=== PATIENT | female | born 2000 | race Caucasian/White ===

== ENCOUNTER 2022-01-01 09:20 | Emergency (ER) | payer MEDICAID, OTHER ==
[~2022-01-01] VITALS: Ht 157.5 cm; Wt 41.3 kg
[2022-01-01 09:35] VITALS: BP 118/76
[2022-01-01] MEDS ORDERED: predniSONE 20 MG TAB PO STA (09:41)
--- NOTE | 2022-01-01 09:48 | ED EENT ---
History of Present Illness General Chief Complaint: Oral/Throat Problems Stated Complaint: SORE THROAT Source: patient History of Present Illness Date Seen by Provider: January 01, 2022 Time Seen by Provider: 09:21 Initial Comments 21-year-old female presenting with complaints of cough and sore throat with congestion. She reports that she has with G1, P0 at approximately 4 months gestation. She is following with Dr. Espinoza in [place] for her . She last saw him around the of this month. She was seen on Sunday in clinic and they did a COVID swab and a rapid strep swab. These were both negative. She still has swollen tonsils and congestion with cough. Both her and her boyfriend are here in the emergency department today because of their symptoms. She states that she has been sick about 5 days and he has been sick about a week. Timing/Duration: gradual Severity: moderate Location: throat Prearrival Treatment: no prearrival treatment Modifying Factors: Worse With Other (Talking makes it worse) Associated Symptoms: No change in hearing; cough; No drooling, No ear drainage, No facial pain/swelling, No fever, No malaise; nasal congestion/drainage; No poor fluid intake, No poor solids intake, No sinus infection; sore throat; No tooth pain, No voice change Allergies and Home Medications Allergies Coded Allergies: No Known Drug Allergies (Unverified , 01/01/22) Patient Home Medication List Home Medication List Reviewed: Yes Guaifenesin (Mucinex) 1,200 Mg Tab.er.12h, 1,200 MG PO Q12H Prescribed by: LENA DONG on 01/01/22 0951 Prednisone (Prednisone) 20 Mg Tab, 40 MG PO DAILY Prescribed by: LENA DONG on 01/01/22 0951 Review of Systems Review of Systems Constitutional: No chills, No fever Eyes: No Symptoms Reported Ears: No Symptoms Reported Nose: see HPI, congestion; denies epistaxis, denies pain, denies bloody discharge; clear discharge; denies purulent discharge, denies serosanguinous discharge Mouth: no symptoms reported Throat: pain, swelling, painful swallowing Respiratory: cough Cardiovascular: no symptoms reported Gastrointestinal: no symptoms reported Musculoskeletal: other (General body aches) Skin: No rash Neurological: Headache Past Psjrffq-Klukex-Adxmwt Hx Patient Social History Tobacco Use?: No Use of E-Cig and/or Vaping dev: No Substance use?: No Alcohol Use?: No Past Medical History Surgery/Hospitalization HX: G1, P0 as of December 2021 Surgeries: No Physical Exam Vital Signs Vital Signs - First Documented 01/01/22 09:35 Temp 36.7 Pulse 92 Resp 18 B/P (MAP) 118/76 (90) Pulse Ox 100 O2 Delivery Room Air Height, Weight, BMI Height: '" Weight: lbs. oz. kg; BMI Method: General Appearance: WD/WN, no apparent distress Eyes: bilateral eye PERRL, bilateral eye EOMI Nose: other (Nasal congestion) Mouth/Throat: pharynx swelling; No tonsillar exudate; tonsillar swelling, other (Widespread dental decay with multiple missing teeth. Erythema and swelling to the posterior pharynx without exudate) Neck: non-tender, full range of motion, supple, normal inspection Cardiovascular: normal peripheral pulses, regular rate, rhythm Respiratory: chest non-tender, lungs clear, normal breath sounds, no respiratory distress, no accessory muscle use Gastrointestinal: normal bowel sounds, non tender, soft, no pulsatile mass Neurologic/Psychiatric: alert, oriented x 3 Skin: normal color, warm/dry Progress/Results/Core Measures Results/Orders My Orders Orders - LENA DONG MD Prednisone Tablet (Deltasone Tablet) (01/01/22 09:41) Vital Signs/I&O 01/01/22 09:35 Temp 36.7 Pulse 92 Resp 18 B/P (MAP) 118/76 (90) Pulse Ox 100 O2 Delivery Room Air Progress Progress Note : Progress Note Since she just had a strep and COVID test on Sunday will defer repeating these. Can try a steroid to help with pain and swelling in her throat. This should help dry up some of her congestion as well. She can also use Mucinex which would be safe during . Encouraged to check back through the clinic if she continued to have symptoms and was not improving. Departure Impression Primary Impression: Pharyngitis Qualified Codes: J02.9 - Acute pharyngitis, unspecified Additional Impressions: Upper respiratory infection with cough and congestion Incidental Disposition: 01 HOME, SELF-CARE Condition: Stable Departure-Patient Inst. Decision time for Depature: 09:59 Referrals: PATRICK DOMINGO MD NO,LOCAL PHYSICIAN (PCP) Primary Care Physician Patient Instructions: Sore Throat, Adult ED, Upper Respiratory Infection ED Add. Discharge Instructions: Stay well-hydrated and drink plenty of fluids. The steroid should help with swelling to throat and dry up some of the congestion. You would be safe to take plain Mucinex (guaifenesin) during . This will help loosen any congestion and drainage. If you are not improving this week you could check back with Dr. Espinoza or check in with a primary care clinic about continued symptoms All discharge instructions reviewed with patient and/or family. Voiced understanding. Scripts Guaifenesin (Mucinex) 1,200 Mg Tab.er.12h 1200 MG PO Q12H for Congestion/Cough for 7 Days, #14 TAB 0 Refills Prov: LENA DONG MD 01/01/22 Prednisone (Prednisone) 20 Mg Tab 40 MG PO DAILY for congestion/sore throat for 4 Days, #8 TAB 0 Refills Prov: LENA DONG MD 01/01/22 LENA DONG MD January 01, 2022 09:48
[2022-01-01] MEDS ORDERED: PRD20T PO (09:51)
[2022-01-01] MEDS ORDERED: GUAI120013 PO (09:51)
== END 2022-01-01 10:01 | disposition home or self-care (01) ==
LOC: ER FS 09:21
DX: J02.9 Acute pharyngitis, unspecified (principal); J06.9 Acute upper respiratory infection, unspecified; K02.9 Dental caries, unspecified; K08.109 Complete loss of teeth, unspecified cause, unspecified class; Z33.1 Pregnant state, incidental
CPT/HCPCS: 99283

== ENCOUNTER 2022-07-28 15:44 | Emergency (ER) | payer MEDICAID ==
[~2022-07-28 15:44] MED LIST: GUAI120013 PO; PRD20T PO
[2022-07-28 16:08] LABS: COLOR,URINE YELLOW; GLUCOSE, URINE (UA) TRACE (NEGATIVE); KETONES,URINE NEGATIVE (NEGATIVE); LEUKOCYTE ESTERASE ,URINE 2+ (NEGATIVE); NITRITE,URINE POSITIVE (NEGATIVE); PROTEIN,URINE 2+ (NEGATIVE)
[2022-07-28 16:11] LABS: BILIRUBIN,URINE 1+ (NEGATIVE); CLARITY,URINE TURBID; WBC,URINE TNTC /HPF
--- NOTE | 2022-07-28 16:28 | ED General ---
General Chief Complaint: General Problems/Pain Stated Complaint: WEAKNESS Nursing Triage Note: Patient presents to the ED with c/o lethargy, weakness, and decreased appetite. Reports she was recently told her iron levels are low. States, "I just haven't felt like eating for the past couple of days and all I want to do is sleep." History of Present Illness Date Seen by Provider: Jul 28, 2022 Time Seen by Provider: 16:21 Initial Comments 22-year-old female here complaining of not feeling well and not been able to keep anything down other than Sprite over the past 2 days. Patient states she feels like she is out because she is anemic. Patient states she was tested at her [facility] appointment with her kit and found to be anemic. Patient is taking [id number] iron supplementation but has not followed up with Dr. Marina who is her primary care. Patient she states that she has not tried any Zofran but does have some from her that was recent. Not having any bleeding. No pain with urination. We did get a urine and it shows positive you TI. Allergies and Home Medications Allergies Coded Allergies: No Known Drug Allergies (Unverified , 01/01/22) Patient Home Medication List Home Medication List Reviewed: Yes Guaifenesin (Mucinex) 1,200 Mg Tab.er.12h, 1,200 MG PO Q12H Prescribed by: LENA DONG on 01/01/22 0951 Prednisone (Prednisone) 20 Mg Tab, 40 MG PO DAILY Prescribed by: LENA DONG on 01/01/22 0951 Review of Systems Review of Systems Constitutional: see HPI Past Sablydz-Qzowyo-Nfdnph Hx Patient Social History Tobacco Use?: No Use of E-Cig and/or Vaping dev: Yes E-Cig or Vaping type used: Nicotine Use of E-Cig and/or Vaping [place]: Current Everyday User Substance use?: No Alcohol Use?: No Pt feels they are or have been: No Immunizations Up To Date First/Initial COVID19 Vaccinat: Denies Past Medical History Surgery/Hospitalization HX: Denies Surgeries: No Physical Exam Vital Signs Vital Signs - First Documented 07/28/22 15:45 Temp 36.4 Pulse 102 Resp 16 B/P (MAP) 134/88 (103) Pulse Ox 99 O2 Delivery Room Air Capillary Refill : Less Than 3 Seconds Height, Weight, BMI Height: '" Weight: lbs. oz. kg; 16.00 BMI Method: General Appearance: No Apparent Distress, WD/WN HEENT: PERRL/EOMI, Pharynx Normal Neck: Full Range of Motion, Non Tender, Supple Respiratory: Lungs Clear, Normal Breath Sounds Cardiovascular: Regular Rate, Rhythm Gastrointestinal: Normal Bowel Sounds, Non Tender, Soft Skin: Normal Color, Warm/Dry Progress/Results/Core Measures Suspected Sepsis SIRS Temperature: Pulse: 102 Respiratory Rate: 16 Blood Pressure 134 /88 Mean: 103 Results/Orders Lab Results Laboratory Tests Test 07/28/22 16:00 Range/Units Urine Color YELLOW Urine Clarity TURBID Urine pH 6.0 5-9 Urine Specific [place] 1.025 H 1.016-1.022 Urine Protein 2+ H NEGATIVE Urine Glucose (UA) TRACE H NEGATIVE Urine Ketones NEGATIVE NEGATIVE Urine Nitrite POSITIVE H NEGATIVE Urine Bilirubin 1+ H NEGATIVE Urine Urobilinogen 0.2 < = 1.0 MG/DL Urine Leukocyte Esterase 2+ H NEGATIVE Urine RBC (Auto) 3+ H NEGATIVE Urine RBC /HPF Urine WBC TNTC H /HPF Urine Crystals NONE /LPF Urine Bacteria /HPF Urine Casts NONE /LPF Urine Mucus NEGATIVE /LPF Urine Culture Indicated YES My Orders Orders - PIPO ASCENCIO MD Ua Culture If Indicated (07/28/22 16:04) Urine Bedside (07/28/22 16:04) Urine Culture (07/28/22 16:00) Vital Signs/I&O 07/28/22 15:45 Temp 36.4 Pulse 102 Resp 16 B/P (MAP) 134/88 (103) Pulse Ox 99 O2 Delivery Room Air Capillary Refill : Less Than 3 Seconds Blood Pressure Mean: 103 Progress Note : Time: 16:39 Progress Note Patient states she is feeling better but decided to come in anyway. She think she can go home and take her nausea medicine and then with antibiotics. Departure Impression Primary Impression: Urinary tract infection Qualified Codes: N30.01 - Acute cystitis with hematuria Disposition: HOME, SELF-CARE Condition: Stable Departure-Patient Inst. Decision time for Depature: 16:37 Referrals: NO,LOCAL PHYSICIAN (PCP/Family) Primary Care Physician Patient Instructions: Urinary Tract Infection, Adult (DC) Add. Discharge Instructions: Take antibiotics for infection. Drink lots of water. Follow-up with primary care. Continue to take iron. All discharge instructions reviewed with patient and/or family. Voiced understa nding. Scripts Ciprofloxacin HCl (Ciprofloxacin HCl) 250 Mg Tablet 250 MG PO BID for 3 Days, #6 TAB 0 Refills Prov: PIPO ASCENCIO MD 07/28/22 PIPO ASCENCIO MD Jul 28, 2022 16:28
[2022-07-28] MEDS ORDERED: CIPR250T3 PO (16:38)
[2022-07-28 16:41] VITALS: BP 134/88
== END 2022-07-28 16:40 | disposition home or self-care (01) ==
LOC: EDUNIT# 15:44 → ER FS 15:45
DX: N39.0 Urinary tract infection, site not specified (principal); F17.290 Nicotine dependence, other tobacco product, uncomplicated; Z28.310 Unvaccinated for COVID-19
CPT/HCPCS: 81000; 84703; 87077; 87088; 87186; 99282